=== PATIENT | male | born 1975 | race Caucasian/White ===

== ENCOUNTER → 2017-04-25 | Outpatient (CLI) | payer BC ==
--- NOTE | 2017-04-25 20:14 | CONS ---
DATE OF CONSULTATION: 04/25/2017 A 41-year-old gentleman who has been evaluated in the sleep center for possible obstructive sleep apnea-hypopnea syndrome. HISTORY OF PRESENT ILLNESS/SLEEP/WAKE EVALUATION: The patient's usual sleep schedule is from 9 p.m. until 5:15 to 5:30 a.m.; on weekends from around 10:00 p.m. until 6 to 6:30 a.m. Usually no problems with falling asleep. He has a TV set in the bedroom. He sleeps with snoring and awakenings from sleep with heartburn and restless legs. In the morning patient wakes up tired, he is sleepy during the day. [place] Sleepiness Scale significantly increased to 17. Usually the patient does not take naps but if he does he may see dreams during naps. Usually no hypnagogic or hallucinations, seeing dreams in the second part of the night. No history of cataplexy. [place] Sleepiness Scale significantly increased to 17. Patient has difficulties to pay attention during the day. No problems with memory, concentration, or irritability. PAST MEDICAL HISTORY: Positive for acid reflux, anxiety. SOCIAL HISTORY: Quit smoking 20 years ago, smoked for a few years. Alcohol consumption occasional. REVIEW OF SYSTEMS: Sleepiness during the day. No fevers. No double vision. No recent chest pain. No shortness of breath. No abdominal pain. No bleeding episodes. No blood in urine. No seizure episodes. FAMILY HISTORY: Hypertension, hyperlipidemia, stroke, arthritis, asthma, emphysema, snoring, pneumonia, headaches, cancer, acid reflux, diabetes, thyroid problems, restless legs. PHYSICAL EXAMINATION: GENERAL: Pleasant gentleman without distress. VITAL SIGNS: BP 118/73, HR 60, RR 16. Height 5 feet 10 inches. Weight 223, body mass index 31.9. Neck 16 inches in circumference. Temp is 98.1. Oxygen saturation at room air 99%. Extremely low position of soft palate. Mallampati IV. Slight restriction of nasal breathing. HEENT: PERRLA, EOMI. Evaluation of oropharynx showed tongue protrudes midline. NECK: Supple. No JVD. Thyroid is not palpable. LUNGS: Clear to percussion and to auscultation. Good air exchange. No wheezing or rhonchi. HEART: S1, S2 regular. No murmurs, gallops or rubs. ABDOMEN: Soft and nontender. Bowel sounds are present. No organomegaly appreciated. EXTREMITIES: No clubbing or cyanosis. CABLE TOOL DRILLER: Awake, alert, and oriented x3. Cranial nerves 2 to 7 intact. There is no fasciculation or atrophy noted. No focal deficits observed. ASSESSMENT: 1. Snoring. 2. Extremely low position of soft palate. 3. Sleepiness. 4. Obstructive sleep apnea-hypopnea syndrome. 5. Mild obesity, body mass index of 31.9. 6. Acid reflux. 7. Anxiety. PLAN: 1. Home sleep apnea test for evaluation of the patient's breathing during this sleep. 2. Polysomnography for evaluation of patient's breathing during sleep. 3. CPAP/BiPAP titration if sleep study confirms obstructive sleep apnea-hypopnea syndrome. 4. Preferable position during sleep on the side. 5. No driving if patient feels any sleepiness. Patient is aware of civil and criminal liability for unsafe driving. 6. I will see patient for follow-up visit to explain results of the testing and following plan. Sincerely, Erlin Morse MD, PhD, FAASM. Diplomat of [employer], Sleep Medicine Board by [employer] Rehab Department Manager of [facility] [place]
== END ==
LOC: SLEEP 15:46
PROVIDERS: ATTEND Internal Medicine
DX: R06.83 Snoring (principal); G47.33 Obstructive sleep apnea (adult) (pediatric); E66.9 Obesity, unspecified; K21.9 Gastro-esophageal reflux disease without esophagitis; F41.9 Anxiety disorder, unspecified; G47.10 Hypersomnia, unspecified; Z68.31 Body mass index [BMI] 31.0-31.9, adult; Z87.891 Personal history of nicotine dependence
CPT/HCPCS: 99211

== ENCOUNTER → 2017-08-22 | Outpatient (CLI) | payer BC ==
--- NOTE | 2017-08-22 18:05 | PN ---
PROGRESS NOTE DATE OF SERVICE: 08/22/2017 HISTORY: This 41-year-old gentleman has been followed in sleep center to discuss results of the sleep tests and recommendations. I discussed results of sleep studies with patient in details. Home sleep apnea test showed apnea-hypopnea index 22 with oxygen desaturation to 81%. Subsequently, patient came for titration, but he was able to sleep only for 2 hours and then he left AGAINST MEDICAL ADVICE. I analyzed this 2 hours of recording which we have and his breathing at the pressure is 6 was practically normalized. Apnea-hypopnea index 4.1 with oxygen level above 89.4%. The patient was at that pressure for 13 minutes in REM sleep and 31 minutes in non-REM sleep. Patient continued to have snoring and excessive daytime sleepiness. [place] Sleepiness Scale today increased to 11. MEDICATIONS: Nexium. PHYSICAL EXAM: Patient in no distress. BP 103/67, HR 78, RR 16, height 5 feet 10 inches, weight 217, oxygen saturation on room air 97%, temp 98.5. Oropharynx low position of soft palate. Neck Supple, no JVD. Thyroid is not palpable. LUNGS Clear to percussion and to auscultation. Good air exchange. No wheezing or rhonchi. HEART S1, S2 regular. No murmurs, gallops, or rubs. ABDOMEN Soft and nontender. Bowel sounds are present. No organomegaly appreciated. EXTREMITIES No clubbing or cyanosis. DIRECTOR OF SEARCH ENGINE OPTIMIZATION Awake, alert, and oriented X3. Cranial nerves 2 to 7 intact. There is no fasciculation or atrophy. noted. No focal deficits observed. IMPRESSION: 1. Moderate obstructive sleep apnea-hypopnea syndrome, mostly on control with CPAP at the pressure in the range of 6 cm of water. 2. Mild obesity. 3. Acid reflux. 4. Anxiety. PLAN: 1. Prescription for CPAP and patient should use equipment every night for the whole night. 2. Watching and losing weight. 3. Sleep hygiene and them bed for at least 8 hours. 4. No driving if feeling sleepiness. 5. Followup visit to evaluate clinical response to treatment compliance with treatment and make any necessary adjustments related to mask fitting, pressure and humidification. Thank you very much for allowing me to participate in the management of your patient. Sincerely, Erlin Morse MD, PhD, FAASM Diplomat of [place] [employer] [place] [employer] Mate Chief [facility] [place] MMHANNAH / MARIKA: [id number] /
== END ==
LOC: SLEEP 15:16
PROVIDERS: ATTEND Internal Medicine
DX: G47.33 Obstructive sleep apnea (adult) (pediatric) (principal); E66.9 Obesity, unspecified; F41.9 Anxiety disorder, unspecified; K21.9 Gastro-esophageal reflux disease without esophagitis; Z79.899 Other long term (current) drug therapy